=== PATIENT | male | born 1950 | race Caucasian/White ===

== ENCOUNTER 2020-12-24 08:48 | Emergency (ER) | payer MEDICARE, OTHER, SELFPAY ==
[2020-12-24 08:50] VITALS: BP 152/92; PULSE 83; RESP 14; TEMP 35.8; O2SAT 95; BMI 22.5
--- NOTE | 2020-12-24 10:05 | ED.VIS.GEN ---
History of Present Illness Chief Complaint: Bite Informant: Patient Narrative: 70-year-old male presenting with erythema on the forehead. He has some superficial abrasions here. He states that his plastic trash can lid scratched his face while he was taking out the trash. He denies any loss of consciousness. He did not fall down. He describes it is fairly mild. He notes that now he has erythema on his forehead. Denies any systemic signs or symptoms. Has not had any drainage. - Past Medical History (1) Chronic constipation Status: Chronic (2) DVT (deep venous thrombosis) Status: Chronic (3) Hemorrhoid Status: Chronic Past Medical History - Allergies and Home Meds Allergies/Adverse Reactions: Allergies No Known Allergies Allergy (Verified 12/24/20 08:50) Primary Care Physician: Christie Galvez MD [Primary Care Provider] - Past Medical History: - - Reviewed in problem list Surgical History: herniorrhaphy Lives: Alone Smoking Status: Unknown if ever smoked Alcohol: None Drugs: None Review of Systems General: Denies: Chills, Fever, Sweats Eyes: Denies: Visual changes - bilaterally, Diplopia ENT: Denies: Rhinorrhea, Sore throat Cardiovascular: Denies: Chest pain, Palpitations Respiratory: Denies: Dyspnea, Cough, Dyspnea on exertion Gastrointestinal: Denies: Abdominal pain, Nausea, Vomiting, Diarrhea, Melena, Hematochezia Genitourinary: Denies: Dysuria, Hematuria, Frequency Musculoskeletal: Denies: Back pain, Extremity Pain Skin: Reports: Rash - Forehead, Abrasions - Forehead. Denies: Wounds Neurological: Denies: Headache, Weakness, Numbness Psych: Denies: Depression, Anxiety, Suicidal thoughts, Suicidal ideations, -, - Physical Exam Vital Signs/Narrative: Vital Signs Temp Pulse Resp BP Pulse Ox 12/24/20 08:50 96.4 F L 83 14 152/92 H 95 General: Well nourished, No Acute Distress Head: Normocephalic, Atraumatic Eyes: Perrl, EOMI ENT: Moist mucous membranes, No rhinorrhea Cardiovascular: Regular rate, Regular rhythm Respiratory: No distress, CTA bilaterally Skin: Rash - Erythema and warmth over forehead centrally and to the left. There is some superficial abrasions here. No abscess. Neurological: Alert, Oriented x3, Cranial nerves II-XII grossly intact Psychological: Normal affect, Normal Mood Diagnostic/Tx/Re-eval - Medical Decision Making She has cellulitis on his forehead from scraping his trash can lid. I do not believe he needs any lab work or imaging. Will be started on antibiotics here in the ED. He was given a prescription. He is to keep his rash clean and dry. He is counseled to stay out of the sun as well. Patient given return precautions. Stable for discharge at this time. Impression: 1. Forehead cellulitis ED Disposition - Plan for ED Patient: Referrals: Christie Galvez MD [Primary Care Provider] -
[2020-12-24] MEDS: Doxycycline 100 MG CAPSULE PO (10:32)
[2020-12-24 10:38] VITALS: PULSE 78; RESP 17; O2SAT 98
--- NOTE | 2020-12-24 11:09 | ED.VIS.GEN ---
History of Present Illness Chief Complaint: Bite Informant: Patient - Past Medical History (1) Chronic constipation Status: Chronic (2) DVT (deep venous thrombosis) Status: Chronic (3) Hemorrhoid Status: Chronic Past Medical History - Allergies and Home Meds Allergies/Adverse Reactions: Allergies No Known Allergies Allergy (Verified 12/24/20 08:50) Primary Care Physician: Christie Galvez MD [Primary Care Provider] - Surgical History: herniorrhaphy Lives: Alone Smoking Status: Unknown if ever smoked Alcohol: None Drugs: None Physical Exam Vital Signs/Narrative: Vital Signs Temp Pulse Resp BP Pulse Ox 12/24/20 10:38 78 17 98 12/24/20 08:50 96.4 F L 83 14 152/92 H 95 ED Disposition - Plan for ED Patient: Disposition: Home or Assisted Living Instructions: ED Cellulitis, Facial Prescriptions: Doxycycline Hyclate 0 mg PO BID #20 capsule Prescription Printed Referrals: Christie Galvez MD [Primary Care Provider] -
== END 2020-12-24 10:44 | disposition home or self-care (01) ==
PROVIDERS: Emergency Provider Student in an Organized Health Care Education/Training Program; PCP Internal Medicine
DX: L03.211 Cellulitis of face (principal); K59.00 Constipation, unspecified; Z87.19 Personal history of other diseases of the digestive system; Z86.718 Personal history of other venous thrombosis and embolism
CPT/HCPCS: 99283

== ENCOUNTER 2021-06-13 16:45 | Inpatient (IN) | payer MEDICARE, OTHER, SELFPAY ==
[2021-06-13 16:46] VITALS: BP 156/98; PULSE 90; RESP 16; TEMP 36.6; O2SAT 93; BMI 23.9
--- NOTE | 2021-06-13 17:23 | EX.ED.VISEXT ---
HPI History of Present Illness Chief Complaint: Bite Narrative Narrative: 70-year-old male presenting with cat bites and scratches to the right forearm. Patient states that he does have feral cats in his house. He does care for them. He states that during feeding time the cats were being aggressive with each other. Afterwards he was with one of the cats and thought that the other cat was coming back to be aggressive with a cat near him. He took a swing at the cat and the cat started to bite and scratch him. He does feel that the cats typically get jealous of each other. Neither one of them are foaming at the mouth. He does not get the cats vaccinated. Patient presents today with swelling of the right wrist and hand with lymphangitic streaking up the right forearm. He is not been on any antibiotics. Denies fever or chills. ROS ROS ED Constitutional Constitutional ED: Denies chills or fever(s) Eyes Eyes: Denies blurry vision or diplopia ENT ENT ED: Denies rhinorrhea or sore throat Cardiovascular Cardiovascular: Denies chest pain or palpitations Respiratory/Chest Respiratory/Chest: Denies dyspnea Gastrointestinal Gastrointestinal: Denies abdominal pain, nausea or vomiting Genitourinary Genitourinary ED: Denies dysuria or hematuria Musculoskeletal Musculoskeletal: Denies myalgias Integumentary Reports other Details: Multiple puncture wounds to right hand, wrist, distal forearm with swelling and erythema of the hand wrist and forearm with lymphangitic streaking Neurologic Neurologic: Denies headache(s) or paresthesias [facility] Medical History (Updated 06/13/21 @ 18:23 by Yani Meyers) Hypertension Home Medications lisinopril 20 mg PO DAILY 12/09/15 [History Last Taken Unknown] cyanocobalamin (vitamin B-12) 1,000 mcg IM QMONTH 12/24/20 [History Last Taken Unknown] ergocalciferol (vitamin D2) 50,000 unit PO YE 12/24/20 [History Last Taken Unknown] Allergy/AdvReac Type Severity Reaction Status Date / Time No Known Allergies Allergy Verified 06/13/21 16:46 Social History Smoking Status: Unknown if ever smoked EXAM Physical Exam Const Vital Signs: 06/13/21 16:46 06/13/21 18:21 Temperature 97.8 F 98.0 F Temperature Source Temporal Oral Pulse Rate 90 90 Respiratory Rate 16 16 Blood Pressure 156/98 H 151/88 H Blood Pressure Mean 117 109 Pulse Ox 93 93 Oxygen Delivery Method Room Air Room Air Positive well nourished General Appearance ED: NAD HEENT Reports moist mucous membranes normocephalic and atraumatic Eyes PERRL and EOMs intact bilaterally Cardio regular rate and regular rhythm Extremity Extremity Narrative: Multiple puncture wounds to right hand, wrist, distal forearm with swelling and erythema of the hand wrist and forearm with lymphangitic streaking Neuro oriented x3 Sensorium / Orientation: alert Psych mental status grossly normal Skin Skin Narrative: As described above MDM MDM MDM Narrative Medical decision making narrative: 70-year-old male presenting with cat bite to the right hand and arm. It is difficult to tell which ones or scratches or bites. Is not deeper bleeding. There is some small drainage which is clear. Patient has swollen right hand as well as extension into the wrist and forearm with lymphangitic streaking. Patient is not had a fever. Patient given Unasyn lab work obtained. Patient had no leukocytosis. H&H stable. Renal function electrolytes are normal. CRP is elevated at 20.4. ESR is 9. Given the diffuse nature of the cellulitis from the cat bite I think the patient will need IV antibiotics and admission. Discussed with hospitalist. Patient transferred in stable condition. Impression: 1. Cellulitis 2. Cat bite 3. Cat scratch Lab Data Attestation: I reviewed the patient's lab results. Labs: Laboratory Results - last 24 hr 06/13/21 06/13/21 17:41 17:41 WBC 9.4 RBC 4.26 L Hgb 13.6 Hct 41.2 MCV 96.7 H MCH 31.9 MCHC 33.0 RDW Std Deviation 46.8 H RDW Coeff of Basim 13.2 Plt Count 185 MPV 9.3 Immature Gran % (Auto) 0.300 Neut % (Auto) 77.0 H Lymph % (Auto) 11.1 L [place] % (Auto) 11.2 H Eos % (Auto) 0.1 Baso % (Auto) 0.3 Absolute Neuts (auto) 7.2 Absolute Lymphs (auto) 1.04 Nucleated RBC % 0 ESR 9 Sodium 140 Potassium 3.3 L Chloride 110 H Carbon Dioxide 26.0 Anion Gap 4 L BUN 18 Creatinine 1.05 Estim Creat Clear Calc 64.53 Est GFR (MDRD) Af Amer 89 Est GFR (MDRD) Non-Af 74 BUN/Creatinine Ratio 17.1 Glucose 111 H Calcium 8.5 Total Bilirubin 0.50 AST 10 L ALT 13 L Alkaline Phosphatase 59 C-React Prot Ext Range 20.40 H Total Protein 6.8 Albumin 3.3 Globulin 3.5 Albumin/Globulin Ratio 0.9 Radiography Diagnostic Testing: Clinical Impression(s) from Imaging Studies Forearm X-Ray 06/13/21 17:45 IMPRESSION: Normal x-ray examination of the radius and ulna. Electronically Signed: Murray Groves MD at 18:23 EDT , Service support , Hand X-Ray 06/13/21 17:45 IMPRESSION: Soft tissue swelling of the dorsal surface without evidence for acute fracture or osteomyelitis. Degenerative changes of the thumb Electronically Signed: Murray Groves MD at 18:13 EDT , Service support , Discharge Plan Triage Chief Complaint: Bite ED Provider: Mc Ortiz Dx/Rx/DC Orders Primary Care Provider: Christie Galvez
[2021-06-13] MEDS: Diphth,Pertuss(Acell),Tet Vac 0.5 ML Vial IM (17:43)
--- NOTE | 2021-06-13 17:45 | RAD_ITS ---
STUDY: X-RAY - RIGHT RADIUS AND ULNA REASON FOR EXAM: Male, 70 years old. swelling TECHNIQUE: 2 view(s) of the forearm. COMPARISON: None. FINDINGS: There is no demonstrated soft tissue swelling. Normal visualized radius. Normal visualized ulna. RAD/Forearm 2 Views IMPRESSION: Normal x-ray examination of the radius and ulna. Electronically Signed: Murray Groves MD at 18:23 EDT , Service support ,
--- NOTE | 2021-06-13 17:45 | RAD_ITS ---
STUDY: X-RAY - RIGHT HAND REASON FOR EXAM: Male, 70 years old. hand swelling TECHNIQUE: 3 view(s) of the hand. COMPARISON: None. FINDINGS: Normal radiocarpal articulation. Normal distal radioulnar joint. Normal visualized carpal bones. Normal carpal articulations Arthritic changes of the carpometacarpal articulation of the thumb. Normal second through fifth carpometacarpal joints. Normal metacarpi. Arthritic changes of the metacarpophalangeal joint of the thumb. Normal interphalangeal joint of the thumb. Normal proximal and distal phalanges of the thumb. Normal metacarpophalangeal joints of the second through fifth fingers. Normal proximal and distal interphalangeal joints of the second through fifth fingers. Normal phalanges of the second through fifth fingers. Mild diffuse soft tissue swelling of the dorsal surface of the hand RAD/Hand Min 3 Views IMPRESSION: Soft tissue swelling of the dorsal surface without evidence for acute fracture or osteomyelitis. Degenerative changes of the thumb Electronically Signed: Murray Groves MD at 18:13 EDT , Service support ,
[2021-06-13 17:50] LABS: Absolute Lymphocyte Count 1.04 X10^3/uL (0.83-4.51); Absolute Neutrophil Count 7.2 X10^3/uL (2.0-7.7); Basophil# 0.03 X10^3/uL; Basophil% 0.3 % (0-1); Eosinophil# 0.01 X10^3/uL; Eosinophils% 0.1 % (0-5); Hematocrit 41.2 % (40-54); Hemoglobin 13.6 g/dL (13.0-16.5); Lymphocyte # 1.04 X10^3/ul (0.83-4.51); Lymphocyte % 11.1 % (19-41); Mean Corpuscular Hgb 31.9 pg (27.0-32.0); Mean Corpuscular Volume 96.7 fL (80-94); Mean Platelet Vol. 9.3 fl (6.2-12.0); Monocyte# 1.05 X10^3/uL; Monocyte% 11.2 % (0-10); NRBC Flagged by Analyzer 0 % (0-5); Neutrophil # 7.22 X10^3/uL (2.7-7.7); Platelet Count 185 K/mm3 (150-450); RBC Distribution Width CV 13.2 % (11.6-14.6); RBC Distribution Width SD 46.8 fl (35.1-43.9); Red Blood Count 4.26 M/mm3 (4.6-6.2); White Blood Count 9.4 K/mm3 (4.4-11.0)
[2021-06-13 17:54] LABS: Erythrocyte Sedimentation Rate 9 mm/hr (0-20)
[2021-06-13 18:04] LABS: ALB/GLOB Ratio 0.9 RATIO (0.9-2.4); AST(SGOT) 10 U/L (15-37); Alanine Aminotransfer ALT/SGPT 13 U/L (16-61); Albumin, Serum 3.3 g/dL (3.2-5.0); Alkaline Phosphatase 59 U/L (45-117); Anion Gap 4 (5-15); BUN 18 mg/dL (7-18); BUN/Creat Ratio 17.1 RATIO (10-20); Calcium,Total 8.5 mg/dL (8.5-10.1); Chloride 110 mmol/L (98-107); Creatinine, Serum 1.05 mg/dL (0.70-1.30); EST Glomerular Filtration Rate 74 mL/min (>60); Est Glom Filt Rate - Afr Amer 89 mL/min (>60); Estimated Creatinine Clearance 64.53 ml/min; Globulin 3.5 g/dL (2.2-4.2); Glucose 111 mg/dL (74-106); Potassium 3.3 mmol/L (3.5-5.1); Protein, Total 6.8 g/dL (6.4-8.2); Sodium Level 140 mmol/L (136-145)
[2021-06-13 18:21] VITALS: BP 151/88; PULSE 90; RESP 16; TEMP 36.7; O2SAT 93
--- NOTE | 2021-06-13 19:19 | PCM.HP.STD ---
HPI - General General Date of Admission: 06/13/21 HPI Narrative ADEN MERA, is a 70 M with a significant history of hypertension who presents to the emergency department with a cat bite. Patient swat a cat which he thought was going to get aggressive and the cat bit and scratched his right wrist. He reports excruciating pain in his right wrist. The cat bite was a day before presentation. Of note history is difficult to obtain from outpatient likely secondary to impaired hearing and impaired speech. [facility] Medical History (Updated 06/13/21 @ 19:[address] Campos Curtis MD) Hypertension Home Medications lisinopril 20 mg PO DAILY 12/09/15 [History Last Taken Unknown] cyanocobalamin (vitamin B-12) 1,000 mcg IM QMONTH 12/24/20 [History Last Taken Unknown] ergocalciferol (vitamin D2) 50,000 unit PO YE 12/24/20 [History Last Taken Unknown] Allergy/AdvReac Type Severity Reaction Status Date / Time No Known Allergies Allergy Verified 06/13/21 16:46 Family History (Updated 06/13/21 @ 19:[address] Campos Curtis MD) Other Heart disease Peripheral artery disease Surgical History (Updated 06/13/21 @ 19:[address] Campos Curtis MD) History of herniorrhaphy Social History (Updated 06/13/21 @ 19:[address] Campos Curtis MD) Smoking Status: Former smoker ROS ROS Narrative Constitutional: Denies fever, chills, fatigue, anorexia and change in weight Eyes: Denies blurry vision, change in eye color, change in vision, discharge from eye(s), double vision, erythema, eye pain, loss of vision or other HEENT: Denies abnormal hearing, dysphagia, ear pain, epistaxis, headache(s), hearing loss, nasal congestion, nasal discharge, post nasal drip, sinus pressure, sore throat or other Cardiovascular: Denies chest pain or palpitations. Denies dyspnea on exertion, orthopnea and paroxysmal nocturnal dyspnea Respiratory/Chest: Denies cough, excessive phlegm production, shortness of breath with exertion and wheezing Gastrointestinal: Denies abdominal pain, coffee ground emesis, constipation, diarrhea, dyspepsia, hematemesis, hematochezia, loose stools, melena, nausea, vomiting or other Genitourinary: Denies burning urination, difficulty urinating, dysuria, hematuria, nocturia, urinary frequency, urinary hesitancy, urinary incontinence, urinary urgency or other Musculoskeletal: Reports right breast pain. Denies back pain, myalgias, neck pain or other Neurologic: Denies abnormal gait, abnormal speech, confusion, disequilibrium, dizziness, focal weakness, headache(s), numbness, paresthesias, seizure-like activity, seizures, syncope, tingling, tremor(s) or other Psychiatric: Denies anxiety, depression, homicidal ideation, suicidal ideation or other Endocrinology: Denies change in body appearance, cold intolerance, excessive sweating, heat intolerance, polydipsia, polyuria or other Hematologic/Lymphatic: Denies anemia, easy bleeding, easy bruising, lymphadenopathy or other Integumentary: Unkempt nails; scaly rashes and patchy erythematous skin under bilateral feet. Allergic/Immunologic: Denies rhinitis, hives, eczema, asthma or other Vital Signs Vital Signs Vital Signs: 06/13/21 16:46 06/13/21 18:21 Temperature 97.8 F 98.0 F Temperature Source Temporal Oral Pulse Rate 90 90 Respiratory Rate 16 16 Blood Pressure 156/98 H 151/88 H Blood Pressure Mean 117 109 Pulse Ox 93 93 Oxygen Delivery Method Room Air Room Air Weight Weight: 73.6 kg Body Mass Index (BMI) 23.9 Physical Exam Narrative Physical exam: General: Well-nourished, well-developed. Head: Normocephalic, atraumatic, no tenderness Eyes: PERRLA, EOMI ENT, no trauma, moist mucous membranes, no rhinorrhea Neck: Nontender, full range of motion, no spinal tenderness, deformities, step-off CVS: Regular rate and rhythm. S1-S2 present. No murmur, gallop or rub. Respiratory : clear to auscultation bilaterally, chest wall nontender, no wheezing Abdomen: Soft, nontender, nondistended, normal bowel sounds, no masses : Deferred Back: Nontender, no CVA tenderness, no midline spinal tenderness, deformities, step-offs Extremities: Swelling; tenderness and mild erythema of right wrist to distal forearm. Skin: Unkempt nails; Scaly rashes and patchy erythematous skin under bilateral feet. Neuro: Alert, oriented, cranial nerves II through XII grossly intact. Psychiatry: Normal mood. Normal affect. Not depressed. Not anxious. Results Lab / Micro Data Result Diagrams: 06/13/21 17:41 06/13/21 17:41 Labs: Laboratory Results - last 24 hr 06/13/21 17:41: WBC 9.4, RBC 4.26 L, Hgb 13.6, Hct 41.2, MCV 96.7 H, MCH 31.9, MCHC 33.0, RDW Std Deviation 46.8 H, RDW Coeff of Basim 13.2, Plt Count 185, MPV 9.3, Immature Gran % (Auto) 0.300, Neut % (Auto) 77.0 H, Lymph % (Auto) 11.1 L, [place] % (Auto) 11.2 H, Eos % (Auto) 0.1, Baso % (Auto) 0.3, Absolute Neuts (auto) 7.2, Absolute Lymphs (auto) 1.04, Nucleated RBC % 0, ESR 9 06/13/21 17:41: Sodium 140, Potassium 3.3 L, Chloride 110 H, Carbon Dioxide 26.0, Anion Gap 4 L, BUN 18, Creatinine 1.05, Estim Creat Clear Calc 64.53, Est GFR (MDRD) Af Amer 89, Est GFR (MDRD) Non-Af 74, BUN/Creatinine Ratio 17.1, Glucose 111 H, Calcium 8.5, Total Bilirubin 0.50, AST 10 L, ALT 13 L, Alkaline Phosphatase 59, C-React Prot Ext Range 20.40 H, Total Protein 6.8, Albumin 3.3, Globulin 3.5, Albumin/Globulin Ratio 0.9 Radiology Impression Forearm X-Ray 06/13/21 17:45 IMPRESSION: Normal x-ray examination of the radius and ulna. Electronically Signed: Murray Groves MD at 18:23 EDT , Service support , Hand X-Ray 06/13/21 17:45 IMPRESSION: Soft tissue swelling of the dorsal surface without evidence for acute fracture or osteomyelitis. Degenerative changes of the thumb Electronically Signed: Murray Groves MD at 18:13 EDT , Service support , Assessment & Plan Assessment/Plan (1) Cat bite involving extremity: PLAN: Cat bite involving right wrist Forearm x-ray and hand x-ray independently interpreted ED labs reviewed showed normal white counts with neutrophilia monocytosis; and lymphopenia. CRP is elevated at 20.40. Received DTaP injection at the emergency department. Received Unasyn at the emergent department and continued. Ice to extremity. PT and OT to work with patient. If does not improve or if it gets worsens consider transfer to to see hand surgeon or plastic surgeon. Trend CBC Hypertension Blood pressure is not within goal Lisinopril continued. As needed hydralazine ordered. Trend blood pressure and adjust blood pressure medications. Hypokalemia Potassium of 3.3 Replace Trend BMP Charges/Coding Visit Charges Inpatient E&M: 80578 Init Hosp L2
[2021-06-13 19:27] VITALS: BP 174/100; PULSE 84; RESP 16; TEMP 36.7; O2SAT 96
[2021-06-13 19:57] VITALS: BMI 21.3
[2021-06-13 20:00] VITALS: BP 181/79; PULSE 72; RESP 18; TEMP 37.7; O2SAT 96
[2021-06-13] MEDS: Potassium Chloride Oral Tablet 20 MEQ 40 MEQ PO (22:00)
[2021-06-13 22:12] VITALS: BP 178/102; PULSE 80; RESP 18; TEMP 37.3; O2SAT 95
[2021-06-13] MEDS: hydrALAZINE 20 MG/ML Vial 5 MG IV (22:12)
[2021-06-14] VITALS (9 sets, daily range): BP systolic 131–173; BP diastolic 88–103; PULSE 65–99; RESP 14–18; TEMP 36.6–37.3; O2SAT 90–98
--- NOTE | 2021-06-14 04:39 | PCS.PANDOC ---
PANDEMIC DOCUMENTATION INITIATED: Date: 04/15/2021 Time: 1900 Emergency Documentation initiated 06/13/21 @ 195
[2021-06-14 06:35] LABS: Absolute Lymphocyte Count 0.73 X10^3/uL (0.83-4.51); Absolute Neutrophil Count 5.7 X10^3/uL (2.0-7.7); Basophil# 0.02 X10^3/uL; Basophil% 0.3 % (0-1); Eosinophil# 0.01 X10^3/uL; Eosinophils% 0.1 % (0-5); Hematocrit 40.7 % (40-54); Hemoglobin 13.7 g/dL (13.0-16.5); Lymphocyte # 0.73 X10^3/ul (0.83-4.51); Lymphocyte % 10.2 % (19-41); Mean Corp Hgb Conc 33.7 g/dL (32-36); Mean Corpuscular Hgb 32.2 pg (27.0-32.0); Mean Corpuscular Volume 95.8 fL (80-94); Mean Platelet Vol. 9.2 fl (6.2-12.0); Monocyte# 0.74 X10^3/uL; Monocyte% 10.3 % (0-10); NRBC Flagged by Analyzer 0 % (0-5); Neutrophil # 5.65 X10^3/uL (2.7-7.7); Neutrophil % 78.8 % (47-70); Platelet Count 181 K/mm3 (150-450); RBC Distribution Width CV 13.4 % (11.6-14.6); RBC Distribution Width SD 47.6 fl (35.1-43.9); Red Blood Count 4.25 M/mm3 (4.6-6.2); White Blood Count 7.2 K/mm3 (4.4-11.0)
[2021-06-14 06:56] LABS: Anion Gap 8 (5-15); BUN 13 mg/dL (7-18); BUN/Creat Ratio 13.7 RATIO (10-20); Calcium,Total 8.6 mg/dL (8.5-10.1); Chloride 114 mmol/L (98-107); Creatinine, Serum 0.95 mg/dL (0.70-1.30); EST Glomerular Filtration Rate 83 mL/min (>60); Est Glom Filt Rate - Afr Amer 101 mL/min (>60); Estimated Creatinine Clearance 70.11 ml/min; Glucose 109 mg/dL (74-106); Potassium 3.5 mmol/L (3.5-5.1); Sodium Level 143 mmol/L (136-145)
[2021-06-14] MEDS: Lisinopril 20 MG Tablet PO (08:07)
[2021-06-14] MEDS: hydrALAZINE 20 MG/ML Vial 5 MG IV ×2 (08:07→17:39)
[2021-06-14] MEDS: Acetaminophen 325 MG Tablet 650 MG PO (08:12)
--- NOTE | 2021-06-14 10:50 | CASEMGMT ---
NICLO DE LA ROSA Assessment: Face to Face with pt for initial transition planning/care coordination assessment. NICOL DE LA ROSA introduced self and role at [facility], pt voices understanding and consents to assessment. Pt is A/O x4 and answers all questions appropriately at this time. Pt sitting up in bed with ice on the R wrist in no distress. Pt states he was bitten by a feral cat in his neighborhood. Care providers, pharmacy, and demographics verified/updated. Admitting Dx: Cat bite PCP: Lenny Specialists:Pt denies. Preferred Pharmacy: [facility], [employer] Insurance: [facility], [employer] Prescription Benefit: yes LW/HPOA: Pt denies having a LW/DPOA and denies need for info regarding AD. LNOK: Rachel/Shahram Tee, friends Living Arrangements: Pt lives with a roommate in a duplex that is two stories with two steps to enter. Pt reports being I in ADL's and denies concerns at home. Transportation: Pt drives self and denies concerns with transportation. DME/HHC/SNF: Pt has a cane that he uses on long walks. Pt denies hx of HHC or SNF stays. Pt states no concerns with going home at time of dc. Pt states no further concerns/needs. CM to follow. Advised pt to ask CM if any further question/concerns/needs arise, voices understanding. Pt Goal: Home Plan: Home, will follow for any wound care or needs that arise.
--- NOTE | 2021-06-14 10:57 | PCM.PN.HOSP ---
Subjective Subjective Doing well, feels little bit better. Thinks the swelling in his right hand is down a little bit. He does have a puncture wound on the dorsal aspect of his hand from his cat bite Objective Data Objective Data Vital Signs: Vital Signs Temp Pulse Resp BP Pulse Ox 99.1 F 71 14 173/97 H 96 06/14/21 08:03 06/14/21 08:07 06/14/21 08:03 06/14/21 08:03 06/14/21 08:03 Oxygen Delivery Method Room Air Weight: 153 lb 3.54 oz Body Mass Index (BMI) 21.3 Intake & Output: Intake and Output for Last 24 Hours 06/13/21 06/14/21 06/15/21 03:59 03:59 03:59 Intake Total 424 / 424 412 / 412 Output Total 700 / 700 Balance 424 / 424 -288 / -288 Lab / Micro Data Result Diagrams: 06/14/21 06:25 06/14/21 06:25 Labs: Laboratory Results - last 24 hr 06/13/21 17:41: WBC 9.4, RBC 4.26 L, Hgb 13.6, Hct 41.2, MCV 96.7 H, MCH 31.9, MCHC 33.0, RDW Std Deviation 46.8 H, RDW Coeff of Basim 13.2, Plt Count 185, MPV 9.3, Immature Gran % (Auto) 0.300, Neut % (Auto) 77.0 H, Lymph % (Auto) 11.1 L, [place] % (Auto) 11.2 H, Eos % (Auto) 0.1, Baso % (Auto) 0.3, Absolute Neuts (auto) 7.2, Absolute Lymphs (auto) 1.04, Nucleated RBC % 0, ESR 9 06/13/21 17:41: Sodium 140, Potassium 3.3 L, Chloride 110 H, Carbon Dioxide 26.0, Anion Gap 4 L, BUN 18, Creatinine 1.05, Estim Creat Clear Calc 64.53, Est GFR (MDRD) Af Amer 89, Est GFR (MDRD) Non-Af 74, BUN/Creatinine Ratio 17.1, Glucose 111 H, Calcium 8.5, Total Bilirubin 0.50, AST 10 L, ALT 13 L, Alkaline Phosphatase 59, C-React Prot Ext Range 20.40 H, Total Protein 6.8, Albumin 3.3, Globulin 3.5, Albumin/Globulin Ratio 0.9 06/14/21 06:25: WBC 7.2, RBC 4.25 L, Hgb 13.7, Hct 40.7, MCV 95.8 H, MCH 32.2 H, MCHC 33.7, RDW Std Deviation 47.6 H, RDW Coeff of Basim 13.4, Plt Count 181, MPV 9.2, Immature Gran % (Auto) 0.300, Neut % (Auto) 78.8 H, Lymph % (Auto) 10.2 L, [place] % (Auto) 10.3 H, Eos % (Auto) 0.1, Baso % (Auto) 0.3, Absolute Neuts (auto) 5.7, Absolute Lymphs (auto) 0.73 L, Nucleated RBC % 0 06/14/21 06:25: Sodium 143, Potassium 3.5, Chloride 114 H, Carbon Dioxide 21.0, Anion Gap 8, BUN 13, Creatinine 0.95, Estim Creat Clear Calc 70.11, Est GFR (MDRD) Af Amer 101, Est GFR (MDRD) Non-Af 83, BUN/Creatinine Ratio 13.7, Glucose 109 H, Calcium 8.6 Radiography Diagnostic Testing: Radiology Impression Forearm X-Ray 06/13/21 17:45 IMPRESSION: Normal x-ray examination of the radius and ulna. Electronically Signed: Murray Groves MD at 18:23 EDT , Service support , Hand X-Ray 06/13/21 17:45 IMPRESSION: Soft tissue swelling of the dorsal surface without evidence for acute fracture or osteomyelitis. Degenerative changes of the thumb Electronically Signed: Murray Groves MD at 18:13 EDT , Service support , Physical Exam Const alert, oriented x3 and no apparent distress General Appearance: cooperative HEENT normocephalic and moist oral mucous membranes Eyes PERRL, EOMs intact bilaterally and conjunctivae normal Neck supple and no JVD Resp normal respiratory effort, no retractions, no use of accessory muscles and clear to auscultation bilaterally Auscultation: Negative for crackles, rales, rhonchi or wheezes Cardio regular rate, regular rhythm, S1 normal heart sound, S2 normal heart sound and no murmurs GI soft to palpation, non-tender and non-distended; Negative for hepatosplenomegaly Extremity no clubbing, cyanosis or edema Skin Skin Narrative: Swelling and erythema on his right hand central area with a bite wound, no streaking Neuro no focal motor deficits and no sensory deficits noted Psych affect normal Appearance: appropriate Assessment & Plan Assessment/Plan (1) Cat bite involving extremity: PLAN: 1. Cat bite to right hand -He states it is improving, continue with IV Unasyn -The bite occurred the day prior to admission, he has not been on any outpatient antibiotics -We will consider consult to plastic surgery if worsens -Remains afebrile without a leukocytosis -Continue with pain meds 2. Hypertension -Blood pressure is a little bit elevated -Continue with his home lisinopril, will add Norvasc DVT: SCDs Charges/Coding Visit Charges Inpatient E&M: 04759 Subs Hosp L2
[2021-06-14] MEDS: amLODIPine 10 MG Tablet PO (11:35)
[2021-06-14] MEDS: oxyCODONE 5 MG Tablet PO (17:39)
[2021-06-14] MEDS: 0.9% Saline Lock 10 ML Syringe IV (17:41)
[2021-06-15] VITALS (9 sets, daily range): BP systolic 123–171; BP diastolic 75–96; PULSE 80–99; RESP 16–18; TEMP 36.3–37.1; O2SAT 93–98
[2021-06-15] MEDS: oxyCODONE 5 MG Tablet PO (02:49)
[2021-06-15] MEDS: hydrALAZINE 20 MG/ML Vial 5 MG IV ×2 (02:49→20:31)
[2021-06-15] MEDS: amLODIPine 10 MG Tablet PO (06:18)
[2021-06-15] MEDS: Lisinopril 20 MG Tablet PO (06:18)
[2021-06-15 07:49] LABS: Absolute Lymphocyte Count 1.04 X10^3/uL (0.83-4.51); Absolute Neutrophil Count 5.9 X10^3/uL (2.0-7.7); Basophil# 0.05 X10^3/uL; Basophil% 0.6 % (0-1); Eosinophil# 0.02 X10^3/uL; Eosinophils% 0.3 % (0-5); Hematocrit 39.3 % (40-54); Hemoglobin 13.1 g/dL (13.0-16.5); Lymphocyte # 1.04 X10^3/ul (0.83-4.51); Lymphocyte % 13.1 % (19-41); Mean Corp Hgb Conc 33.3 g/dL (32-36); Mean Corpuscular Volume 96.1 fL (80-94); Mean Platelet Vol. 9.6 fl (6.2-12.0); Monocyte# 0.88 X10^3/uL; Monocyte% 11.1 % (0-10); NRBC Flagged by Analyzer 0 % (0-5); Neutrophil % 74.4 % (47-70); Platelet Count 181 K/mm3 (150-450); RBC Distribution Width CV 13.5 % (11.6-14.6); RBC Distribution Width SD 48.4 fl (35.1-43.9); Red Blood Count 4.09 M/mm3 (4.6-6.2); White Blood Count 7.9 K/mm3 (4.4-11.0)
[2021-06-15 08:28] LABS: Anion Gap 9 (5-15); BUN 16 mg/dL (7-18); Calcium,Total 8.4 mg/dL (8.5-10.1); Chloride 110 mmol/L (98-107); Creatinine, Serum 0.84 mg/dL (0.70-1.30); EST Glomerular Filtration Rate 95 mL/min (>60); Est Glom Filt Rate - Afr Amer 115 mL/min (>60); Estimated Creatinine Clearance 79.29 ml/min; Glucose 92 mg/dL (74-106); Potassium 3.3 mmol/L (3.5-5.1); Sodium Level 142 mmol/L (136-145)
--- NOTE | 2021-06-15 09:22 | PCM.PN.HOSP ---
Subjective Subjective And appears to be improving. He says pain is much better. Objective Data Objective Data Vital Signs: Vital Signs Temp Pulse Resp BP Pulse Ox 97.3 F L 83 18 162/81 H 98 06/15/21 08:06 06/15/21 08:06 06/15/21 08:06 06/15/21 08:06 06/15/21 08:06 Oxygen Delivery Method Room Air Weight: 153 lb 3.54 oz Body Mass Index (BMI) 21.3 Intake & Output: Intake and Output for Last 24 Hours 06/14/21 06/15/21 06/16/21 03:59 03:59 03:59 Intake Total 424 / 424 1828.75 / 1828.75 180 / 180 Output Total 1600 / 1600 Balance 424 / 424 228.75 / 228.75 180 / 180 Lab / Micro Data Result Diagrams: 06/15/21 07:01 06/15/21 07:01 Labs: Laboratory Results - last 24 hr 06/15/21 07:01: WBC 7.9, RBC 4.09 L, Hgb 13.1, Hct 39.3 L, MCV 96.1 H, MCH 32.0, MCHC 33.3, RDW Std Deviation 48.4 H, RDW Coeff of Basim 13.5, Plt Count 181, MPV 9.6, Immature Gran % (Auto) 0.500, Neut % (Auto) 74.4 H, Lymph % (Auto) 13.1 L, [place] % (Auto) 11.1 H, Eos % (Auto) 0.3, Baso % (Auto) 0.6, Absolute Neuts (auto) 5.9, Absolute Lymphs (auto) 1.04, Nucleated RBC % 0 06/15/21 07:01: Sodium 142, Potassium 3.3 L, Chloride 110 H, Carbon Dioxide 23.0, Anion Gap 9, BUN 16, Creatinine 0.84, Estim Creat Clear Calc 79.29, Est GFR (MDRD) Af Amer 115, Est GFR (MDRD) Non-Af 95, BUN/Creatinine Ratio 19.0, Glucose 92, Calcium 8.4 L Physical Exam Const alert, oriented x3 and no apparent distress General Appearance: cooperative HEENT normocephalic and moist oral mucous membranes Eyes PERRL, EOMs intact bilaterally and conjunctivae normal Neck supple and no JVD Resp normal respiratory effort, no retractions, no use of accessory muscles and clear to auscultation bilaterally Auscultation: Negative for crackles, rales, rhonchi or wheezes Cardio regular rate, regular rhythm, S1 normal heart sound, S2 normal heart sound and no murmurs GI soft to palpation, non-tender and non-distended; Negative for hepatosplenomegaly Extremity no clubbing, cyanosis or edema Skin Skin Narrative: Swelling and erythema on his right hand central area with a bite wound, no streaking Neuro no focal motor deficits and no sensory deficits noted Psych affect normal Appearance: appropriate Assessment & Plan Assessment/Plan (1) Cat bite involving extremity: PLAN: 1. Cat bite to right hand -He states it is improving, continue with IV Unasyn -The bite occurred the day prior to admission, he has not been on any outpatient antibiotics -We will consider consult to plastic surgery if worsens -Remains afebrile without a leukocytosis -Continue with pain meds 2. Hypertension -Blood pressure is a little bit elevated -Continue with his home lisinopril, will add Norvasc DVT: SCDs Charges/Coding Visit Charges Inpatient E&M: 97776 Subs Hosp L2
[2021-06-15] MEDS: Potassium Chloride Oral Tablet 20 MEQ 60 MEQ PO (11:03)
[2021-06-15] MEDS: Acetaminophen 325 MG Tablet 650 MG PO (20:27)
[2021-06-16] VITALS (7 sets, daily range): BP systolic 135–170; BP diastolic 79–103; PULSE 68–96; RESP 18; TEMP 36.4–36.8; O2SAT 95–98
[2021-06-16] MEDS: hydrALAZINE 20 MG/ML Vial 5 MG IV (03:03)
[2021-06-16] MEDS: Acetaminophen 325 MG Tablet 650 MG PO (06:34)
[2021-06-16] MEDS: amLODIPine 10 MG Tablet PO (08:14)
[2021-06-16] MEDS: Ergocalciferol 1.25 MG (50, 000 UNIT) Capsule PO (08:14)
[2021-06-16] MEDS: Lisinopril 20 MG Tablet PO (08:14)
--- NOTE | 2021-06-16 10:37 | PCM.DC ---
Discharge Instructions Diet Discharge Diet: No restrictions Activity Discharge Activity: Return to Normal Activity Dressing / Incision Call your doctor if your incision/area has: Increased Pain/ Swelling, Increased Redness and Foul Smelling Discharge Call your doctor if you observe: Fever of 101 or Higher, Shortness of breath, Dizziness, Fainting spells, Swelling in the ankles, Chest pain and Increased palpitations (irregular heartbeat) Follow Up Care Test Results: Test results from this visit will be discussed in further detail at your follow-up appointment, if applicable. Discharge Plan Admission Admit Date/Time: 06/13/21 19:13 Attending Provider: Jean Marie Chopra Primary Care Provider: Christie Galvez Discharge Orders/Prescriptions Prescriptions: New amoxicillin-pot clavulanate [Augmentin] 875-125 mg tablet 1 tab PO Q12H Qty: 14 RF: 0 Continued lisinopril 10 MG tablet 20 mg PO DAILY RF: 0 cyanocobalamin (vitamin B-12) 1,000 MCG/ML solution 1,000 mcg IM QMONTH RF: 0 ergocalciferol (vitamin D2) 1,250 MCG capsule 50,000 unit PO YE RF: 0 Referrals / Follow Up: Christie Galvez MD [Primary Care Provider] - 06/17/21 Disposition Disposition (needs filled in before D/C Order can be placed): Home, Self Care
--- NOTE | 2021-06-16 10:40 | PCM.DC.SUM ---
Providers Date of Admission: 06/13/21 Primary Care Physician: Dr. Christie Galvez MD Reason For Visit: CAT BITE Diagnosis Discharge Diagnosis (1) Cat bite involving extremity: Status: Acute Medications at Discharge Home Medications lisinopril 20 mg PO DAILY 12/09/15 cyanocobalamin (vitamin B-12) 1,000 mcg IM QMONTH 12/24/20 ergocalciferol (vitamin D2) 50,000 unit PO YE 12/24/20 amoxicillin-pot clavulanate [Augmentin] 1 tab PO Q12H #14 tab 06/16/21 Hospital Course Operations None Procedures None Summary of Care Provided Minutes Spent on Discharge: 35 Hospital Course: Per HPI: ADEN MERA, is a 70 M with a significant history of hypertension who presents to the emergency department with a cat bite. Patient swat a cat which he thought was going to get aggressive and the cat bit and scratched his right wrist. He reports excruciating pain in his right wrist. The cat bite was a day before presentation. Of note history is difficult to obtain from outpatient likely secondary to impaired hearing and impaired speech. Hospital Course: 1. Cat bite to the right [id number] male who had a cat bite on the day before admission, he did not seek any medical treatment prior to admission. He was started on Unasyn and has had significant improvement in both the redness, swelling, and pain. There is not appear to be any fluctuance any warmth therefore we will plan to discharge him on 10 more days of p.o. Augmentin. Of note he has a PCP appointment tomorrow which I advised him to keep that way that can be continued follow-up on his hand. He never had any sepsis on this admission. I discussed with him the plan for discharge today he potentially recommends going home and would like to go home today. 2. Hypertension is a chronic medical condition which complicates care. His medications were continued where appropriate Physical Exam Const alert, oriented x3 and no apparent distress General Appearance: cooperative HEENT normocephalic and moist oral mucous membranes Eyes PERRL, EOMs intact bilaterally and conjunctivae normal Neck supple and no JVD Resp normal respiratory effort, no retractions, no use of accessory muscles and clear to auscultation bilaterally Auscultation: Negative for crackles, rales, rhonchi or wheezes Cardio regular rate, regular rhythm, S1 normal heart sound, S2 normal heart sound and no murmurs GI soft to palpation, non-tender and non-distended; Negative for hepatosplenomegaly Extremity no clubbing, cyanosis or edema Skin Skin Narrative: Improving swelling and erythema on his right hand central area with a bite wound, no streaking Neuro no focal motor deficits and no sensory deficits noted Psych affect normal Appearance: appropriate Weight / BMI Weight Weight: 153 lb 3.54 oz Body Mass Index (BMI) 21.3 ABG / Lab / Microbiology Data Result Diagrams: 06/15/21 07:01 06/15/21 07:01 D/C Instructions Discharge Diet: No restrictions Call your doctor if your incision/area has: Increased Pain/ Swelling, Increased Redness and Foul Smelling Discharge Call your doctor if you observe: Fever of 101 or Higher, Shortness of breath, Dizziness, Fainting spells, Swelling in the ankles, Chest pain and Increased palpitations (irregular heartbeat) Meaningful Use Info Meaningful Use Diagnoses (Choose all that apply): None applicable Discharge Plan Admission Admit Date/Time: 06/13/21 19:13 Attending Provider: Jean Marie Chopra Primary Care Provider: Christie Galvez Discharge Orders/Prescriptions Prescriptions: New amoxicillin-pot clavulanate [Augmentin] 875-125 mg tablet 1 tab PO Q12H Qty: 14 RF: 0 Continued lisinopril 10 MG tablet 20 mg PO DAILY RF: 0 cyanocobalamin (vitamin B-12) 1,000 MCG/ML solution 1,000 mcg IM QMONTH RF: 0 ergocalciferol (vitamin D2) 1,250 MCG capsule 50,000 unit PO YE RF: 0 Referrals / Follow Up: Christie Galvez MD [Primary Care Provider] - 06/17/21 Disposition Disposition (needs filled in before D/C Order can be placed): Home, Self Care Charges/Coding Visit Charges Inpatient E&M: 13469 Disch Hosp
== END 2021-06-16 14:53 | disposition home or self-care (01) | DRG 603 ==
LOC: ED 19:16 → MS3 19:36
PROVIDERS: Admitting Provider Hospitalist; Emergency Provider Student in an Organized Health Care Education/Training Program; PCP Internal Medicine; Visit Provider Family Medicine
DX: L03.90 Cellulitis, unspecified (principal); S61.451A Open bite of right hand, initial encounter; I10 Essential (primary) hypertension; H91.90 Unspecified hearing loss, unspecified ear; M79.89 Other specified soft tissue disorders; E87.6 Hypokalemia; R47.9 Unspecified speech disturbances; I73.9 Peripheral vascular disease, unspecified; W55.03XA Scratched by cat, initial encounter; Z87.891 Personal history of nicotine dependence; W55.01XA Bitten by cat, initial encounter
CPT/HCPCS: 36415; 73090; 73130; 80048; 80053; 85025; 85652; 86140; 90715; 97110; 97161; 97166; 97530; 97535; 99284; J7040; J7050; A4216; J0295